=== PATIENT | female | born 1945 | race Caucasian/White ===

== ENCOUNTER 2020-06-25 09:47 | Outpatient (CLI) | payer MEDICARE, MEDICAID | END 2020-06-25 23:59 | disposition home or self-care (01) | LOC: 64 CT 09:47 | PROVIDERS: ATTEND Family Medicine | DX: R91.1 Solitary pulmonary nodule (principal); J84.10 Pulmonary fibrosis, unspecified; I25.10 Atherosclerotic heart disease of native coronary artery without angina pectoris; I51.7 Cardiomegaly; I70.0 Atherosclerosis of aorta; Z90.49 Acquired absence of other specified parts of digestive tract | CPT/HCPCS: 71250 ==

== ENCOUNTER 2020-07-17 10:12 | Outpatient (CLI) | payer MEDICARE, MEDICAID ==
[~2020-07-17] VITALS: Ht 162.6 cm; Wt 90.7 kg
[2020-07-17] MEDS ORDERED: albuterol 2.5 MG/3 ML nebule NEB ONE (10:50)
== END 2020-07-17 23:59 | disposition home or self-care (01) ==
LOC: RT 10:12 → EDUNIT# 10:30 → RT 23:59
PROVIDERS: ATTEND Family Medicine
DX: J84.10 Pulmonary fibrosis, unspecified (principal); J84.112 Idiopathic pulmonary fibrosis
CPT/HCPCS: 94060; 94760